=== PATIENT | male | born 1975 | race Caucasian/White ===

== ENCOUNTER 2016-09-17 14:05 | Emergency (ER) | payer OTHER ==
[~2016-09-17] VITALS: Ht 188 cm; Wt 104.3 kg
[~2016-09-17 14:05] MED LIST: ALPRAZOLAM1 M2 PO; CEFTRIAXONE2 GM IV; CLEOCIN HCL300 MG PO; DURAGESIC25 MCG TOP; ENDOCET 325 MG-1 TA1 PO; GOOD NEIGHBOR650 M1 PO; GOOD SENSE ASP325 MG PO; IBU800 MG PO; IBUPROFEN800 MG PO; KEFLEX 250MG C250 MG PO; MOTRIN 800MG T800 MG PO; PROAIR HFA8.5 GM INH
[2016-09-17] MEDS ORDERED: IBUPROFEN800 M1 PO (15:52)
--- NOTE | 2016-09-17 16:45 | ED UPPER/LOWER EXTREMITY COMPL ---
History of Present Illness General Chief Complaint: General Adult Stated Complaint: SWELLING/NUMBNESS HANDS Source: patient Exam Limitations: no limitations Vital Signs & Intake/Output Vital Signs & Intake/Output Vital Signs Date Time Temp Pulse Resp B/P B/P Pulse O2 O2 Flow FiO2 Mean Ox Delivery Rate 09/176 101.2 130 22 113/73 97 Room Air 09/17 1628 98.9 127 20 119/76 98 Room Air Room Air 09/17 1552 97 09/17 1425 98.5 132 20 126/87 98 Room Air Allergies Coded Allergies: pecan nut (Severe, ANAPHYLAXIS 09/18/15) Penicillins (HIVES, RASH 08/18/15) Sulfa (Sulfonamide Antibiotics) (HIVES, RASH 08/18/15) animal dander (DYSPNEA, WATERY ITCHY EYES 09/17/16) walnut (WALNUT - ANAPHYLAXIS 08/18/15) Triage Note: PT TO ED C/O NUMBNESS AND TINGLING TO LEFT HAND RADIATING UP LEFT ARM X A FEW DAYS. PT STATES HE WAS IN REHAB FOR HEROIN. RELEASED THE BEGINNING OF AUGUST. STARTED USING AGAIN. STATES LAST INJECTION OF HEROIN WAS LAST NIGHT TO [facility]. DENIES INJECTING LEFT HAND. Triage Nurses Notes Reviewed? yes HPI: This patient is a 41 year old male with a history of heroin abuse who presented for evaluation of left arm numbness and swelling. He reported that the symptoms started yesterday with swelling in his left hand and numbess. Swelling has improved but now has pain from his finger tips up his arm. Pain gets up to an 8 out of 10. Sharp. Constant. He admitted to injecting heroin into his left arm. Last use was last night. Today reported feeling feverish and with "pain until the left side of my diaphragm." Patient is feeling shakey. Just got off of Methadone mainenence. No shortness of breath, neck pain, or abdominal pain. Current headache requesting Ibuprofen. (KULWANT VARGAS,THANIA) Reconcile Medications Albuterol Sulfate (Proair Hfa) 90 MCG HFA.AER.AD 2 PUF INH PRN ASTHMA ( Reported) Alprazolam 1 MG TABLET 1 TAB PO BID PRN ANXIETY (Reported) Doxycycline Hyclate (Vibramycin) 100 MG CAPSULE 1 CAP PO BID cellulitis Hydroxyzine Pamoate (Vistaril) 25 MG CAPSULE 1 CAP PO TID PRN anxiety Ibuprofen 800 MG TABLET 1 TAB PO TID PAIN (Reported) Naproxen (Naprosyn) 500 MG TABLET 1 TAB PO BID PRN pain and inflammation (FRANCOISE QUINTERO,[place] Castaneda) Past History Travel History Traveled to [place] past 21 day No Medical History Any Pertinent Medical History? see below for history Neurological: NONE EENT: NONE Cardiovascular: NONE Respiratory: asthma Gastrointestinal: NONE Hepatic: hepatitis C Renal: NONE Musculoskeletal: NONE Psychiatric: NONE Endocrine: NONE Blood Disorders: NONE Cancer(s): NONE PARBOILER/Reproductive: NONE Other Medical Hx: IV drug abuse Alcohol abuse history of MRSA cellulitis from prior IV drug use site. History of MRSA: Yes History of VRE: No History of CDIFF: No Surgical History Surgical History: spinal fusion Psychosocial History Who do you live with Patient/Self What is your primary language [place] Tobacco Use: Current Not Daily ETOH Use: heavy use Illicit Drug Use: heroin Family History Family History, If Any: MOTHER (HypertensionDiabetes mellitusOrbit obesity). FATHER (Esophageal cancer). Hx Contributory? No (THANIA BLUM PA-C) Review of Systems Review of Systems Constitutional: Reports: see HPI. EENTM: Reports: no symptoms. Respiratory: Reports: no symptoms. Cardiovascular: Reports: see HPI. Gastrointestinal/Abdominal: Reports: no symptoms. Genitourinary: Reports: no symptoms. Musculoskeletal: Reports: see HPI. Skin: Reports: no symptoms. Neurological/Psychological: Reports: see HPI. All Other Systems: Reviewed and Negative (THANIA BLUM PA-C) Physical Exam Physical Exam General Appearance: well developed/nourished, alert, awake, anxious Comments: Well-developed well-nourished person in no acute distress PERRLA bilaterally Nose is atraumatic. Neck: Supple, no lymphadenopathy. Full range of motion Back: Normal gait Cardiovascular: Tachycardic with regular rhythm. No murmurs, rubs, or gallops. No JVD or carotid bruits Respiratory: Chest nontender. No respiratory distress. Breath sounds clear to auscultation bilaterally no wheezes, rales, or rhonchi Left upper extremity: 5 out of 5 petal shaper hand strength. Normal sensation. Capillary refill less than 2 seconds. Radial and brachial pulses 2+ and strong. Full range of motion at the shoulder, elbow, and wrist. No bony or muscular deformities appreciated. No effusions or overlying erythema or ecchymosis. No tenderness to palpation over the bony prominences or musculature Neuro: Alert oriented x3, motor sensory normal, cranial nerves II through XII grossly intact. Skin: No appreciable rash on exposed skin, skin is warm and clammy Psych: Mood and affect is normal (KULWANT VARGAS,THANIA) Progress Differential Diagnosis: cellulitis, compartment syndrome, DVT, ACS, NEUOPATHY, RADICULOPATHY Plan of Care: Orders Procedure Date/time Status TROPONIN LEVEL 09/17 162 Complete COMPREHENSIVE METABOLIC PANEL 09/17 162 Complete CBC WITHOUT DIFFERENTIAL 09/17 162 Complete EKG 09/17 162 Active Laboratory Tests 09/17/16 1833: Anion Gap 13, Estimated GFR > 60, BUN/Creatinine Ratio 11.4, Glucose 97, Calcium 8.8, Total Bilirubin 1.0, AST 32, ALT 39, Alkaline Phosphatase 116, Troponin I < 0.01, Total Protein 7.4, Albumin 4.0, Globulin 3.4, Albumin/Globulin Ratio 1.2, CBC w Diff NO MAN DIFF REQ, RBC 4.56 L, MCV 89.1, MCH 30.0, RDW 13.1, MPV 6.2 L, Gran % 87.7 H, Lymphocytes % 5.6 L, Monocytes % 5.2, Eosinophils % 1.3, Basophils % 0.2, Absolute Granulocytes 11.2 H, Absolute Lymphocytes 0.7 L, Absolute Monocytes 0.7 H, Absolute Eosinophils 0.2, Absolute Basophils 0, PUBS MCHC 33.7 Diagnostic Imaging: Viewed by Me: Radiology Read, Ultrasound. Discussed w/RAD: Radiology Read, Ultrasound. Radiology Impression: PATIENT: DONNY ISABEL PRESENT AGE: 41 PATIENT ACCOUNT NO: [id number] : 74 LOCATION: [facility] ORDERING PHYSICIAN: THANIA BLUM PA-C SERVICE DATE: 09/17/16 EXAM TYPE: US - US-UNILATERAL VENOUS DOPPLER EXAMINATION: Ultrasound left upper extremity CLINICAL INFORMATION: Pain COMPARISON: None TECHNIQUE: Color-flow triplex imaging with spectral analysis and compression Doppler were performed on the left upper extremity FINDINGS: No evidence of DVT on the imaging submitted. Cephalic vein, basilic vein, brachial, axillary, subclavian and jugular lower. IMPRESSION: No evidence for DVT left upper extremity. DICTATED BY: RADHA ACOSTA MD DATE/TIME DICTATED:09/17/161757 SENIOR ACCOUNT CLERK:ESPINOZA DATE/TIME TRANSCRIBED:09/17/161757 CONFIDENTIAL, DO NOT COPY WITHOUT APPROPRIATE AUTHORIZATION. <Electronically signed in Other Vendor System> SIGNED BY: RADHA ACOSTA MD 09/17/161802 CXR Impression: PATIENT: DONNY ISABEL PRESENT AGE: 41 PATIENT ACCOUNT NO: [id number] : 74 LOCATION: [facility] ORDERING PHYSICIAN: THANIA BLUM PA-C SERVICE DATE: 09/17/16 EXAM TYPE: RAD - XRY-CHEST XRAY, PA AND LATERAL EXAMINATION: XR CHEST CLINICAL INFORMATION: Left arm pain COMPARISON: 06/15/2008 TECHNIQUE: 2 views of the chest were obtained. FINDINGS: No acute finding. No infiltrate. No effusion. The heart size is normal. The hilar structures are comparable to previous. No effusion. IMPRESSION: No acute process. DICTATED BY: RADHA ACOSTA MD DATE/TIME DICTATED:09/17/161807 SENIOR ACCOUNT CLERK:ESPINOZA DATE/TIME TRANSCRIBED:09/17/161807 CONFIDENTIAL, DO NOT COPY WITHOUT APPROPRIATE AUTHORIZATION. <Electronically signed in Other Vendor System> SIGNED BY: RADHA ACOSTA MD 09/17/161825 Initial ED EKG: normal axis, no ST T wave changes, sinus tachycardia, 119 bpm Comments: 09/17/2016 7:27:42 PM: Upon discharge, this patient spiked a fever to 101F. Tachycardic in the 140s. I discussed this patient with Dr. Allen who suggested giving this patient a dose of IV antibiotics and 2 L of IV fluids here in the emergency department. I discussed this with the patient who adamantly is refusing. He reported that he will keep an eye on his symptoms and if things get worse he will come back to the emergency department. I discussed this patient the risks of leaving his condition and he reported that he understands and would still like to leave. (KULWANT VARGAS,THANIA) Departure Departure Disposition: HOME OR SELF CARE Condition: Stable Clinical Impression Primary Impression: Cellulitis Qualifiers: Site of cellulitis: extremity Site of cellulitis of extremity: upper extremity Laterality: left Qualified Code: L03.114 - Cellulitis of left upper limb Referrals: JACQUE QUINTERO,INDIA Gao (PCP/Family) Additional Instructions: Please take antibiotic as prescribed and for the full duration. Take medication for pain as prescribed. Be sure to stay hydrated and follow-up with your primary care physician. Return for any worsening symptoms or concerns. Departure Forms: Customer Survey General Discharge Information Prescriptions: Current Visit Scripts Doxycycline Hyclate (Vibramycin) 1 CAP PO BID #20 CAP Naproxen (Naprosyn) 1 TAB PO BID PRN pain and inflammation #20 TAB Hydroxyzine Pamoate (Vistaril) 1 CAP PO TID PRN anxiety #15 CAP (THANIA BLUM PA-C) PA/PAPETERIE TABLE ASSEMBLER Co-Sign Statement Statement: ED Attending supervision documentation- [] I saw and evaluated the patient. I have also reviewed all the pertinent lab results and diagnostic results. I agree with the findings and the plan of care as documented in the PA's/PAPETERIE TABLE ASSEMBLER's documentation. [X] I have reviewed the ED Record and agree with the PA's/PAPETERIE TABLE ASSEMBLER's documentation. [] Additions or exceptions (if any) to the PAs/PAPETERIE TABLE ASSEMBLER's note and plan are summarized below: [] (FRANCOISE QUINTERO,[place] Castaneda)
--- NOTE | 2016-09-17 18:03 | ULTRASOUND REPORT ---
EXAMINATION: Ultrasound left upper extremity CLINICAL INFORMATION: Pain COMPARISON: None TECHNIQUE: Color-flow triplex imaging with spectral analysis and compression Doppler were performed on the left upper extremity FINDINGS: No evidence of DVT on the imaging submitted. Cephalic vein, basilic vein, brachial, axillary, subclavian and jugular lower. IMPRESSION: No evidence for DVT left upper extremity.
--- NOTE | 2016-09-17 18:26 | RADIOLOGY REPORT ---
EXAMINATION: XR CHEST CLINICAL INFORMATION: Left arm pain COMPARISON: 06/15/2008 TECHNIQUE: 2 views of the chest were obtained. FINDINGS: No acute finding. No infiltrate. No effusion. The heart size is normal. The hilar structures are comparable to previous. No effusion. IMPRESSION: No acute process.
[2016-09-17 18:41] LABS: ABSOLUTE BASOPHIL COUNT 0 /CUMM (0.0-0.2); ABSOLUTE EOSINOPHIL COUNT 0.2 /CUMM (0.0-0.7); ABSOLUTE GRANULOCYTE CT 11.2 /CUMM (1.4-6.5); ABSOLUTE LYMPH COUNT 0.7 /CUMM (1.2-3.4); ABSOLUTE MONOCYTE COUNT 0.7 /CUMM (0.10-0.60); BASOPHIL % 0.2 % (0.0-2.0); EOSINOPHIL % 1.3 % (0-5); HEMATOCRIT 40.6 % (42-52); MEAN CORPUSCULAR HGB CONC 33.7 G/DL (33.0-37.0); MEAN CORPUSCULAR VOLUME 89.1 FL (80.0-94.0); MEAN PLATELET VOLUME 6.2 FL (7.4-10.4); PLATELET COUNT 224 /CUMM (130-400); RBC DISTRIBUTION WIDTH 13.1 % (11.5-14.5); RED BLOOD CELL CT 4.56 /CUMM (4.70-6.10); WHITE BLOOD CELL COUNT 12.7 /CUMM (4.8-10.8)
[2016-09-17 18:47] LABS: GRANULOCYTE % 87.7 % (42.2-75.2)
[2016-09-17] MEDS ORDERED: NAPROSYN500 M1 PO (19:19)
[2016-09-17] MEDS ORDERED: VIBRAMYCIN100 MG PO (19:19)
[2016-09-17 19:26] VITALS: BP 113/73
[2016-09-17] MEDS ORDERED: VISTARIL25 M1 PO (19:29)
== END 2016-09-17 19:38 ==
LOC: ERH 14:05
PROVIDERS: Physician Assistant
DX: L03.114 Cellulitis of left upper limb (principal); R20.0 Anesthesia of skin
CPT/HCPCS: 36415; 93005; 93010